=== PATIENT | female | born 1945 | race Caucasian/White ===

== ENCOUNTER → 2017-06-13 | Outpatient (CLI) | payer MEDICARE, BC | END | disposition disaster alternative care site (69) | LOC: GKIC 13:06 | DX: M67.472 Ganglion, left ankle and foot (principal); M19.072 Primary osteoarthritis, left ankle and foot; S93.492D Sprain of other ligament of left ankle, subsequent encounter; Z98.890 Other specified postprocedural states; X58.XXXD Exposure to other specified factors, subsequent encounter ==